=== PATIENT | male | born 1980 | race Hispanic/Latino ===

== ENCOUNTER 2016-09-29 05:28 | Emergency (ER) | payer OTHER ==
[~2016-09-29] VITALS: Ht 167.6 cm; Wt 90.7 kg
--- NOTE | 2016-09-29 05:36 | ED CARDIAC/CP/PALPITATIONS ---
History of Present Illness General Chief Complaint: Chest Pain Stated Complaint: CHEST PAIN Source: patient, family Exam Limitations: no limitations Vital Signs & Intake/Output Vital Signs & Intake/Output Vital Signs Date Time Temp Pulse Resp B/P Pulse O2 O2 Flow FiO2 Ox Delivery Rate 09/29 0546 98 Room Air 09/29 0536 97.0 84 18 128/75 99 Room Air Allergies Coded Allergies: No Known Drug Allergies (NKDA 09/29/16) Triage Nurses Notes Reviewed? yes HPI: Yesterday evening patient got home from the gym and noticed that he had a sharp pain underneath his left breast. The pain has waxed and waned in intensity. There are no aggravating or mitigating factors. There is no radiation. The pain is sharp in nature. The pain increases with movement and deep inspiration. He rates the pain as 10 out of 10. Patient denies any cough or shortness of breath. There is no nausea or vomiting. No constipation or diarrhea. Past History Medical History Any Pertinent Medical History? none Surgical History Surgical History: non-contributory Psychosocial History Tobacco Use: Never used ETOH Use: occasional use Illicit Drug Use: denies illicit drug use Family History Hx Contributory? No Review of Systems Review of Systems Constitutional: Reports: no symptoms. EENTM: Reports: no symptoms. Respiratory: Reports: no symptoms. Cardiovascular: Reports: see HPI, chest pain. GI: Reports: no symptoms. Genitourinary: Reports: no symptoms. Musculoskeletal: Reports: no symptoms. Skin: Reports: no symptoms. Neurological/Psychological: Reports: no symptoms. Hematologic/Endocrine: Reports: no symptoms. Immunologic/Allergic: Reports: no symptoms. All Other Systems: Reviewed and Negative Physical Exam Physical Exam General Appearance: well developed/nourished, alert, awake Head: atraumatic, normal appearance Eyes: Bilateral: PERRL, EOMI. Ears, Nose, Throat: normal pharynx, normal ENT inspection, hearing grossly normal Neck: normal inspection, supple, full range of motion Respiratory: normal breath sounds, no respiratory distress, lungs clear Cardiovascular: regular rate/rhythm, normal peripheral pulses Gastrointestinal: normal bowel sounds, soft, non-tender, no organomegaly Back: normal inspection Extremities: normal inspection, normal capillary refill, normal range of motion, no edema Neurologic/Psych: no motor/sensory deficits, awake, alert, oriented x 3, normal mood/affect Skin: intact, normal color, warm/dry Core Measures ACS in differential dx? Yes ASA ordered for poss ACS? No-ACS ruled out Severe Sepsis Present: No Septic Shock Present: No Progress Differential Diagnosis: AMI, atrial fibrillation, costochondritis, hypovolemia, musculoskeletal pain, myocarditis, pancreatitis Plan of Care: Orders Procedure Date/time Status TROPONIN LEVEL 09/29 542 Complete COMPREHENSIVE METABOLIC PANEL 09/29 542 Complete CBC WITHOUT DIFFERENTIAL 09/29 542 Complete Telemetry/Industrial Engineering Analyst 09/29 536 Active EKG 09/29 529 Active Laboratory Tests 09/29/16 0554: Anion Gap 9, Estimated GFR > 60, BUN/Creatinine Ratio 21.0, Glucose 98, Calcium 9.7, Total Bilirubin 1.7 H, AST 42, ALT 85 H, Alkaline Phosphatase 46, Troponin I < 0.01, Total Protein 7.5, Albumin 4.5, Globulin 3.0, Albumin/ Globulin Ratio 1.5, CBC w Diff NO MAN DIFF REQ, RBC 4.80, MCV 90.2, MCH 30.7, RDW 13.0, MPV 7.9, Gran % 66.1, Lymphocytes % 22.3, Monocytes % 8.8, Eosinophils % 2.4, Basophils % 0.4, Absolute Granulocytes 5.9, Absolute Lymphocytes 2.0, Absolute Monocytes 0.8 H, Absolute Eosinophils 0.2, Absolute Basophils 0, PUBS MCHC 34.1 Initial ED EKG: SR WITH J POINT ELEVATION, NO RECIPRICAL CHANGES Rhythm Strip: normal sinus rhythm Comments: PT IS FEELING BETTER POST TORADOL. Departure Departure Disposition: HOME OR SELF CARE Condition: Stable Clinical Impression Primary Impression: Chest pain, unspecified Referrals: ISA TEJADA,TATY Cameron (PCP/Family) Additional Instructions: RETURN IF SYMPTOMS WORSEN OR FOR ANY CONCERNS Departure Forms: Customer Survey General Discharge Information Critical Care Note Critical Care Note Critical Care Time: non-applicable
[2016-09-29 06:08] LABS: ABSOLUTE BASOPHIL COUNT 0 /CUMM (0.0-0.2); ABSOLUTE EOSINOPHIL COUNT 0.2 /CUMM (0.0-0.7); ABSOLUTE GRANULOCYTE CT 5.9 /CUMM (1.4-6.5); ABSOLUTE MONOCYTE COUNT 0.8 /CUMM (0.10-0.60); BASOPHIL % 0.4 % (0.0-2.0); EOSINOPHIL % 2.4 % (0-5); GRANULOCYTE % 66.1 % (42.2-75.2); HEMATOCRIT 43.3 % (42-52); MEAN CORPUSCULAR HGB 30.7 PG (27.0-31.0); MEAN CORPUSCULAR HGB CONC 34.1 G/DL (33.0-37.0); MEAN CORPUSCULAR VOLUME 90.2 FL (80.0-94.0); MEAN PLATELET VOLUME 7.9 FL (7.4-10.4); PLATELET COUNT 241 /CUMM (130-400)
[2016-09-29 06:54] VITALS: BP 126/73
== END 2016-09-29 06:55 ==
LOC: ERH 05:28
PROVIDERS: Emergency Medicine
DX: R07.9 Chest pain, unspecified (principal)
CPT/HCPCS: 93005; 93010; 96372; J1885